=== PATIENT | male | born 1960 | race Caucasian/White ===

== ENCOUNTER 2021-02-24 13:36 | Outpatient (CLI) | payer OTHER | END 2021-02-24 13:38 | disposition home or self-care (01) | LOC: NUCLEAR 13:36 | PROVIDERS: ATTEND Internal Medicine Cardiovascular Disease | DX: M81.0 Age-related osteoporosis without current pathological fracture (principal) ==

== ENCOUNTER 2021-02-24 14:09 | Outpatient (CLI) | payer OTHER | END 2021-02-24 14:24 | disposition home or self-care (01) | LOC: RAD 14:09 | PROVIDERS: ATTEND Internal Medicine Cardiovascular Disease | DX: R07.89 Other chest pain (principal); I10 Essential (primary) hypertension ==

== ENCOUNTER 2021-10-28 13:57 | Outpatient (CLI) | payer OTHER | END 2021-10-28 13:59 | disposition home or self-care (01) | LOC: LAB 13:57 | PROVIDERS: ATTEND Radiology Diagnostic Radiology | DX: C18.7 Malignant neoplasm of sigmoid colon (principal) ==

== ENCOUNTER 2021-11-01 07:53 | Outpatient (CLI) | payer OTHER | END 2021-11-01 08:00 | disposition home or self-care (01) | LOC: TOM 07:53 | PROVIDERS: ATTEND Internal Medicine Gastroenterology | DX: C18.7 Malignant neoplasm of sigmoid colon (principal) ==

== ENCOUNTER 2021-11-29 09:47 | Outpatient (CLI) | payer OTHER | END 2021-11-29 09:48 | disposition home or self-care (01) | LOC: RAD 09:47 | PROVIDERS: ATTEND Surgery | DX: D37.4 Neoplasm of uncertain behavior of colon (principal); R19.5 Other fecal abnormalities; R93.5 Abnormal findings on diagnostic imaging of other abdominal regions, including retroperitoneum ==

== ENCOUNTER 2021-12-01 09:00 | Inpatient (IN) | payer OTHER ==
[~2021-12-01] VITALS: Ht 167.6 cm; Wt 68.9 kg
[2021-12-01] MEDS ORDERED: MICARDIS80 MG PO (10:17)
[2021-12-01] MEDS ORDERED: BIKTARVY 50-201 EACH PO (10:18)
[2021-12-16] MEDS ORDERED: OXYC1TAB9 PO (09:34)
[2021-12-16] MEDS ORDERED: INTESTINEX680 M1 PO (09:35)
== END 2021-12-16 11:29 | disposition home or self-care (01) | DRG 331 ==
LOC: SURH 12-06 09:00 → SURG 12-13 05:18 → O/R 12-13 05:18 → SURG 12-13 13:44 → SURH 12-14 08:05
PROVIDERS: ADMIT Surgery; ATTEND Surgery
PROC: 0DBP4ZZ Excision of Rectum, Percutaneous Endoscopic Approach (ICD-10-PCS; 2021-12-13)
PROC: 07BB4ZZ Excision of Mesenteric Lymphatic, Percutaneous Endoscopic Approach (ICD-10-PCS; 2021-12-13)
PROC: 07BC4ZZ Excision of Pelvis Lymphatic, Percutaneous Endoscopic Approach (ICD-10-PCS; 2021-12-13)
PROC: 0DJD8ZZ Inspection of Lower Intestinal Tract, Via Natural or Artificial Opening Endoscopic (ICD-10-PCS; 2021-12-13)
PROC: 0DTN4ZZ Resection of Sigmoid Colon, Percutaneous Endoscopic Approach (ICD-10-PCS; principal; 2021-12-13 05:45)
DX: C19 Malignant neoplasm of rectosigmoid junction (principal); R59.0 Localized enlarged lymph nodes; I10 Essential (primary) hypertension; D21.5 Benign neoplasm of connective and other soft tissue of pelvis

== ENCOUNTER → 2021-12-10 09:37 | Outpatient (CLI) | payer OTHER ==
[~2021-12-10 09:37] MED LIST: BIKTARVY 50-201 EACH PO; MICARDIS80 MG PO
== END | disposition home or self-care (01) ==
LOC: LAB 09:37
PROVIDERS: ATTEND Internal Medicine Cardiovascular Disease
DX: U07.1 COVID-19 (principal)

== ENCOUNTER 2022-03-07 07:38 | Outpatient (CLI) | payer OTHER ==
[~2022-03-07 07:38] MED LIST changes: +INTESTINEX680 M1 PO; +OXYC1TAB9 PO
== END 2022-03-07 07:40 | disposition home or self-care (01) ==
LOC: NUCLEAR 07:38
PROVIDERS: ATTEND Internal Medicine Hematology & Oncology
DX: C18.7 Malignant neoplasm of sigmoid colon (principal); I10 Essential (primary) hypertension; B20 Human immunodeficiency virus [HIV] disease
CPT/HCPCS: 78816; A9552

== ENCOUNTER → 2022-12-29 | Outpatient (CLI) | payer OTHER | END | disposition home or self-care (01) | LOC: TOM 07:35 | PROVIDERS: ATTEND Surgery | DX: D37.4 Neoplasm of uncertain behavior of colon (principal); R19.5 Other fecal abnormalities; R93.5 Abnormal findings on diagnostic imaging of other abdominal regions, including retroperitoneum; C18.7 Malignant neoplasm of sigmoid colon ==

== ENCOUNTER 2023-07-03 07:05 | Outpatient (CLI) | payer OTHER | END 2023-07-03 07:07 | disposition home or self-care (01) | LOC: NUCLEAR 07:05 | PROVIDERS: ATTEND Internal Medicine Hematology & Oncology | DX: C18.7 Malignant neoplasm of sigmoid colon (principal); I10 Essential (primary) hypertension; B20 Human immunodeficiency virus [HIV] disease ==